=== PATIENT | female | born 2000 | race Caucasian/White ===

== ENCOUNTER 2019-01-12 13:10 | Outpatient (CLI) | payer OTHER ==
--- NOTE | 2019-01-15 12:33 | CONSULTATION REPORT ---
DATE OF CONSULTATION: 01/12/2019 SUBJECTIVE: Luli is a 18-year-old female presenting to the clinic today for a first visit for a very painful right great toe lateral nail border. She admits a history of recurrent ingrown toenails on the lateral border of this toe as well as other toes. She states that she has had this ingrown and painful for about three weeks now with some drainage. The patient was on antibiotics recently for strep throat, but is continuing to have a very irritated area of this foot. The patient does not admit to any fevers, chills, nausea, vomiting, shortness of breath or chest pain. She denies taking any medicine and states that SHE ONLY HAS AN ALLERGY TO LATEX AND NO MEDICINE ALLERGIES. OBJECTIVE: Vitals: Temperature 98.1 degrees Fahrenheit, heart rate 106, respiration rate 18, blood pressure 150/94. O2 saturation is 98% on room air. Vascular: 2+ DP and PT pulses, right foot. Capillary refill time is less than 3 seconds to the toes of the right foot. There is moderate edema right great toe lateral border. Dermatologic: There is definite significant irritation, swelling and granuloma formation on the lateral aspect of the right great toe. There may be slight erythema and definite necrotic drainage. There is mild malodor. There are no other gross abnormalities noted. There are no other skin concerns noted. These areas of drainage and pain are noted at the right great toe lateral nail border. Musculoskeletal: There is pain on palpation noted on the right great toe lateral border. There are no other gross abnormalities noted except for significant prominence in the right great toe lateral edge of the nail with granuloma formation that is barely firm to touch. Neurologic: Light touch sensation is intact to the toes, right foot. ASSESSMENT AND PLAN: 1. Onychocryptosis right great toe lateral border. 2. Cellulitis right great toe. PROCEDURE #1: Partial nail avulsion of the right great toe lateral border was performed today. Risks and benefits were discussed that include but are not limited to bleeding and infection and the patient has agreed both by written and verbal consent to go forward the procedure at this time for right great toe partial nail avulsion. We discussed the option of putting her on an antibiotic for a week first and then taking care of this permanently or taking care of it now knowing that she may get it to return again in the future, which we would take care of with a permanent procedure at that time. The patient elects to have it done now. PROCEDURE DETAIL: The patient had an alcohol swab utilized to cleanse the base of the right great toe and an injection of a 1:1 mix of 2% lidocaine plain and 0.5% Marcaine plain were injected into the base of the right great toe totaling 5 mL. The patient then once anesthesia was obtained had a Betadine prep performed twice to clean the toe. At this time, nail splitters and a nail spatula were utilized to loosen the nail and trim out the right great toe lateral nail border. At this time, it was confirmed that the entire edge of the nail was removed and the site was rinsed with a copious amount of normal saline. It should be noted that the granuloma was also removed with the Hemostat and bleeding was controlled with pressure and silver nitrate. A copious amount of normal saline was utilized again to rinse out after applying silver nitrate and then it was dried and dressings were applied after obtaining hemostasis, consisting of dressings of Silvadene cream, 4 x 4 gauze, 2 inch [place] and 1 inch Coban beginning on the toe and ending on the distal forefoot to help hold it on the toe. The patient tolerated the procedure well. Post procedure instructions were given written and verbally. The patient has no further questions at this time. Return to clinic in one week for followup. We will call her with an appointment time and place later today. A prescription for Augmentin 875/125 mg one by mouth b.i.d. times 10 days was given to the patient to take through a pharmacy of her choice. David Alejandra D.P.M. /Accutype [id number] /mab MTDD
== END 2019-01-12 13:35 ==
LOC: POD 13:10
PROVIDERS: ATTEND Podiatrist Foot & Ankle Surgery
DX: L60.0 Ingrowing nail (principal); L03.031 Cellulitis of right toe
CPT/HCPCS: 11730; A4554; J2001; J3490

== ENCOUNTER 2019-01-20 12:53 | Outpatient (CLI) | payer OTHER ==
--- NOTE | 2019-01-21 10:37 | OP Clinic Progress Note ---
DATE OF VISIT: 01/20/2019 SUBJECTIVE: Luli is a 18-year-old female presenting to clinic for followup of a right great toe lateral border partial nail avulsion that was performed one week ago. She states she has been using antibiotic and a Band-Aid daily except for today and states that she is having zero pain whatsoever. She does not admit to any other issues nor any fevers, chills, nausea, vomiting, shortness of breath or chest pain. OBJECTIVE: Vitals: Temperature 97.2 degrees Fahrenheit, heart rate 113, respiration rate 18, blood pressure 148/82. O2 saturation is 98% on room air. Vascular: 2+ DP and PT pulses, right foot. Capillary refill time is less than 3 seconds to the toes of the right foot. There is very mild edema noted on the lateral border of the right great toe. Dermatologic: There is no erythema nor any drainage of any kind noted. There is no warmth noted. The site of the procedure on the right great toe lateral border feels completely healed. Musculoskeletal: There was no pain on palpation noted on the right great toe lateral border. There were no other gross abnormalities noted right foot. Neurologic: Light touch sensation is intact to the toes, right foot. ASSESSMENT AND PLAN: 1. Onychocryptosis, right hallux lateral nail border. 2. One week status post partial nail avulsion of the right great toe lateral border. The patient appears to have healed perfectly from this previous procedure. She was notified that the slight swelling on the lateral aspect of the great toe will continue to improve over the next couple of weeks. She does not need to use the Band-Aid going forward at this time and is doing great. She does not have any other questions or concerns and she was encouraged to return as soon as or if any pain returns to the area along with subsequent ingrown toenail and we will do the permanent procedure at that time if it does return. She understands and will do so. Return to the clinic as needed. David Alejandra D.P.M. /Accutype [id number] /mab MTDD
== END 2019-01-20 13:20 ==
LOC: POD 12:53
PROVIDERS: ATTEND Podiatrist Foot & Ankle Surgery
DX: Z48.817 Encounter for surgical aftercare following surgery on the skin and subcutaneous tissue (principal); L60.0 Ingrowing nail
CPT/HCPCS: 99213; A4554